=== PATIENT | female | born 1950 | race Caucasian/White ===

== ENCOUNTER → 2017-04-06 | Outpatient (CLI) | payer MEDICARE, OTHER | END | disposition home or self-care (01) | LOC: MAMMO 13:19 | PROVIDERS: ATTEND Physician Assistant | DX: Z12.31 Encounter for screening mammogram for malignant neoplasm of breast (principal) ==

== ENCOUNTER → 2018-12-23 | Outpatient (CLI) | payer MEDICARE, OTHER | LOC: YCFC.O 11:29 | PROVIDERS: ATTEND Nurse Practitioner | DX: Z00.00 Encounter for general adult medical examination without abnormal findings (principal); E03.9 Hypothyroidism, unspecified; Z13.220 Encounter for screening for lipoid disorders; Z13.29 Encounter for screening for other suspected endocrine disorder ==

== ENCOUNTER → 2020-02-20 | Outpatient (CLI) | payer MEDICARE, OTHER | LOC: YCFC.O 12:07 | PROVIDERS: ATTEND Nurse Practitioner | DX: R10.10 Upper abdominal pain, unspecified (principal); R53.83 Other fatigue; R42 Dizziness and giddiness; Z13.21 Encounter for screening for nutritional disorder; R51.9 Headache, unspecified; R82.79 Other abnormal findings on microbiological examination of urine ==

== ENCOUNTER → 2020-03-08 | Outpatient (CLI) | payer MEDICARE, OTHER ==
--- NOTE | 2020-03-09 12:38 | US ---
EXAM DESCRIPTION: Abdomen,Complete: Ultrasound. CLINICAL HISTORY: 69 years Female UPPER ABDOMINAL PAIN COMPARISON: None Available. TECHNIQUE: Transabdominal scanning: grayscale and Doppler modes. FINDINGS: Gallbladder: normal size, shape, echogenicity; no intraluminal stones or sludge. No fluid around the gallbladder. No wall thickening. 2.6 mm Non-tender with transducer pressure. Common bile duct: caliber 3.4 mm within normal limits. Liver: normal echogenicity; contour liver capsule smooth where seen. No fluid around the liver. Intrahepatic biliary ducts normal caliber. Doppler hepatopedal flow and normal caliber portal vein 10 mm. Long axis right lobe 13.8 cm. Pancreas: normal size and echogenicity. Duct not seen. Complete abdominal aorta: Normal caliber from the proximal segment to the distal bifurcation.. IVC: visualized and normal caliber. Right kidney: long axis measures 10.1cm; volume 119.8 mL. 3.4 x 2.3 cm cyst. Cortical echogenicity is normal. Normal cortical thickness. No echogenic stones; no hydronephrosis. Left kidney: long axis measures 10.8 cm; volume 150.7 mL. Cortical echogenicity is normal. Normal cortical thickness. 8.5 Mm echogenic stone with posterior shadowing mid kidney; no hydronephrosis. Spleen: Normal. No focal lesions.. 8.8 cm long axis. Other: None. IMPRESSION: 1. Normal gallbladder and normal caliber of the common bile duct. Spleen is unremarkable. 2. Negative sonographic findings in the liver and pancreas. Normal caliber of the abdominal aorta and IVC. 3. Normal size of the right kidney with 3.4 cm cyst. Normal size of the left kidney with 8.5 mm echogenic stone in the mid kidney. No hydronephrosis. No perinephric fluid. Electronically signed by: William Salazar MD 03/09/2020 12:36 PM [facility]
== END ==
LOC: US 08:58
PROVIDERS: ATTEND Nurse Practitioner
DX: R10.10 Upper abdominal pain, unspecified (principal); N28.1 Cyst of kidney, acquired; N20.0 Calculus of kidney